=== PATIENT | male | born 1950 | race African-American/Black ===

== ENCOUNTER 2016-03-20 09:54 | Emergency (ER) | payer MEDICARE, MEDICAID ==
[2016-03-20] MEDS ORDERED: Lorazepam 2 MG/ML VIAL ONE (13:43)
--- NOTE | 2016-03-20 14:05 | ERRECORD ---
[facility] EMERGENCY RECORD HPI GENITOURINARY/STD (10:03 DHAM) CHIEF COMPLAINT: Patient presents for evaluation of "He pulled his nowak out this morning" per EMS. assisted evidently called the nurse and said that he had pulled his G tube and they would send one with him. He does not have a Gtube site but does have a suprapubic stoma. Pt with frontotemporal dementia and h/o urinary retension on his chart. HISTORIAN: Additional history obtained from EMS. LOCATION: Unable to localize symptoms. QUALITY: Unable to describe the quality of the pain. SEVERITY: Current severity of pain rated as 0/10. TIME COURSE: Patient unable to describe onset of symptoms. ASSOCIATED WITH: No associated symptoms, drop of blood at the meatus. RELIEVED BY: Patient's condition relieved by nothing. E/M CAVEAT: Emergency room caveat invoked due to patient with dementia. ROS (10:08 DHAM) NOTES: Systems not reviewed; unable., Emergency room caveat invoked due to patient with dementia. PAST MEDICAL HISTORY (10:29 SFRE) MEDICAL HISTORY: Notes: DEMENTIA, Past medical history includes gastrointestinal disease, ESOPHAGITIS, Past medical history includes genitourinary history, URINE RETENTION, Past medical history includes history of hypertension, which has been treated, Past medical history includes neurological disease, transient ischemic attack, Past medical history includes pulmonary disease, chronic obstructive pulmonary disease. PSYCHIATRIC HISTORY: Psychiatric history includes, anxiety. KNOWN ALLERGIES ALLERGIES: (Unconfirmed) FOOD ALLERGIES: (Unconfirmed) LATEX ALLERGY? (Unconfirmed) No Known Allergies CURRENT MEDICATIONS No recorded medications VITAL SIGNS VITAL SIGNS: BP: 134/59, Pulse: 77, Resp: 18, Temp: 97.9 (Tympanic), O2 sat: 99 on Room Air, Time: 03/20/2016 09:56. (09:56 SFRE) BP: 134/55, Pulse: 66, Resp: 18, Temp: 97.9 (Tympanic), Pain: 0, O2 sat: 100 on Room Air, Time: 03/20/2016 11:45. (11:45 SFRE) BP: 131/55, Pulse: 65, Resp: 18, Temp: 97.9, Pain: 0, O2 sat: 100 on RA, &a-1R&a+25V*p+0X*m5322L*c202B*c15G*c2P*p-0X&a-25V&a+1R Name: Arpit Gamble : 1950 M66 MedRec: [id number] AcctNum: [id number] Prepared: SunMar 20, 2016 15:36 by Interface Page 1 of 3 pMD [facility] EMERGENCY RECORD Time: 03/20/2016 13:52. [facility]AM (10:08 [facility]) CONSTITUTIONAL: Vital signs reviewed, Patient afebrile, Pulse normal, Blood pressure normal, Respiratory rate normal, Patient appears non toxic, Patient appears pain free, Patient, agitated, will only yell out "get off of me" and will not answer questions. appears blind but eyes are open an he appears alert. HEAD: Head exam included findings of head atraumatic, normocephalic. EYES: Eye exam included findings of eyelids normal to inspection, Extraocular muscles intact. ENT: Ear exam normal, Nose exam normal, Pharynx exam normal, Uvula exam normal, Tonsil exam normal. NECK: Neck exam included findings of normal range of motion, Trachea midline, turns head either direction on his own. RESPIRATORY CHEST: Respiratory exam included findings of no respiratory distress, Breath sounds clear, No wheezing, No rales, No rhonchi. CARDIOVASCULAR: Cardiovascular exam included findings of heart rate regular rate and rhythm, Heart sounds normal, normal S1, normal S2, no murmurs, no rub, no gallop. ABDOMEN MALE: Abdominal exam included findings of abdomen nontender, Bowel sounds normal, Liver normal, Spleen normal, no distension, no mass, no pulsatile masses, no peritoneal signs, no rigidity, no guarding, no rebound, suprapubic stoma noted with hint of blood at the ext surface. no bladder distension noted. GENITOURINARY MALE: Genitourinary exam included findings of penis normal, Testicle(s), large right hydrocele that transilluminates well and does not appear tender, Other testicle normal, no urethral discharge, no lesions. UPPER EXTREMITY: Upper extremity exam normal, except moderate contractures of bilat UE. LOWER EXTREMITY: Lower extremity exam normal, bilat contractures noted. NEURO: awake with eyes open and yells out and fights with minimal attempts at exam. SKIN: Skin exam included findings of skin warm, dry, and normal in color, no rash. PSYCHIATRIC: severe dementia. MEDICATION ADMINISTRATION SUMMARY Drug Name: LORazepam injection, Dose Ordered: 0.5 mg, Route: IV Push, Status: Given, Time: 13:46 03/20/2016, Detailed record available in Medication Service section. DOCTOR NOTES TEXT: Multiple attempts to reinsert suprapubic cath were &a-1R&a+25V*p+0X*p0610C*c202B*c15G*c2P*p-0X&a-25V&a+1R Name: Arpit Gamble : 1950 M66 MedRec: [id number] AcctNum: [id number] Prepared: SunMar 20, 2016 15:36 by Interface Page 2 of 3 pMD [facility] EMERGENCY RECORD unsuccessful. Will transfer to urology. (10:29 DHAM) Pt discussed with Dr. Avila and then Dr. Garcia in urology at [facility]. Dr. Garcia rec viscous xylocaine and a 16 guage siliconized nowak. We don't have those here. He is accepted in transfer. (11:24 DHAM) Pt had his IV inserted about 20 minutes ago and has been moaning since then and appears uncomfortable. His abdomen does not feel distended and the IV site looks clean and not infiltrated. I will give a low dose of Ativan at this time. (13:41 DHAM) nursing found the siliconized caths 1.5 hours after the pt left here. (15:27 DHAM) PROBLEM LIST No recorded problems DIAGNOSIS (11:32 DHAM) FINAL: PRIMARY: urinary retention, ADDITIONAL: displaced nowak. PRESCRIPTION No recorded prescriptions DISPOSITION PATIENT: Disposition Type: Transfer, Disposition: Transfer to [facility]. (11:32 DHAM) Patient left the department. (13:56 SFRE) Silverman: ERIC=MD José, Ousmane SFRE=SUSANNE Ricardo, Lani &a-1R&a+25V*p+0X*z2087D*c202B*c15G*c2P*p-0X&a-25V&a+1R Name: Arpit Gamble : 1950 M66 MedRec: [id number] AcctNum: [id number] Prepared: Quintin Mar 20, 2016 15:36 by Interface Page 3 of 3 pMD MTDD
--- NOTE | 2016-03-20 14:12 | PICIS ---
[facility] EMERGENCY RECORD COMMUNICATIONS (13:48 SCHI) COMMUNICATIONS: Notes: DR SYDNEE SANCHEZ AND DANIEL LERNER AT 1121 FOR TRANSFER TO ER,. TRIAGE (SunMar 20, 2016 09:57 SFRE) TRIAGE NOTES: PULLED OUT MCCONNELL CATHETER. (SunMar 20, 2016 09:57 SFRE) PATIENT: NAME: Arpit Gamble, AGE: 66, GENDER: male, : Sun1950, TIME OF GREET: SunMar 20, 2016 09:56, PREFERRED LANGUAGE: Belarusian, ECODE BILLING MAP: [facility], SSN: [id number], Zip Code: [address], KG WEIGHT: 58.97, , , PERSON ID: [id number], PCP: ANGELICA. (SunMar 20, 2016 09:57 SFRE) PHONE: . (11:14) COMPLAINT: PULLED CATHETER OUT. (SunMar 20, 2016 09:57 SFRE) ADMISSION: URGENCY: 3 Urgent, ADMISSION SOURCE: Home, TRANSPORT: AMBULANCE - [facility], BED: ED -01. (SunMar 20, 2016 09:57 SFRE) ASSESSMENT: Assessment: NAD, Symptoms began TODAY. (10:37 SFRE) SIRS SCORING: Heart Rate 55-109 (0), Temp range 96.8-101.1 (0), respiratory rate 12-24 (0), Mental Status altered: no (0). (10:37 SFRE) TRIAGE SCREENING: Patient denies suicidal ideation, Patient denies presence of domestic violence. (10:37 SFRE) PROVIDERS: TRIAGE NURSE: Lani Ricardo RN. (SunMar 20, 2016 09:57 SFRE) VITAL SIGNS: BP 134/59, Pulse 77, Resp 18, Temp 97.9, (Tympanic), O2 Sat 99, on Room Air, Time 03/20/2016 09:56. (09:56 SFRE) PREVIOUS VISIT ALLERGIES: No Known Allergies. (SunMar 20, 2016 09:57 SFRE) No Known Allergies. (10:29 SFRE) KNOWN ALLERGIES ALLERGIES: (Unconfirmed) FOOD ALLERGIES: (Unconfirmed) LATEX ALLERGY? (Unconfirmed) No Known Allergies CURRENT MEDICATIONS No recorded medications VITAL SIGNS VITAL SIGNS: BP: 134/59, Pulse: 77, Resp: 18, Temp: 97.9 (Tympanic), O2 sat: 99 on Room Air, Time: 03/20/2016 09:56. (09:56 SFRE) BP: 134/55, Pulse: 66, Resp: 18, Temp: 97.9 (Tympanic), Pain: 0, O2 sat: 100 on Room Air, Time: 03/20/2016 11:45. (11:45 SFRE) BP: 131/55, Pulse: 65, Resp: 18, Temp: 97.9, Pain: 0, O2 sat: 100 on RA, Time: 03/20/2016 13:52. (13:52 SFRE) &a-1R&a+25V*p+0X*p6210A*c202B*c15G*c2P*p-0X&a-25V&a+1R Name: Arpit Gamble : 1950 M66 MedRec: [id number] AcctNum: [id number] Prepared: SunMar 20, 2016 15:36 by Interface Page 1 of 7 pMD [facility] EMERGENCY RECORD NURSING ASSESSMENT: FALL RISK (11:25 SFRE) FALL RISK: Bed rest greater than 2 days (5), Sensory deficits (1), Impaired mobility (3), Elimination problems (3), Confusion (3), Total score 15, Fall risk. NURSING ASSESSMENT: GENITOURINARY CONSTITUTIONAL: Patient arrives, via stretcher, via [facility], Unsteady gait, Inability to ambulate, History obtained from, Patient appears, with contractures, malnourished, COMBATIVE, Patient, confused, combative, uncooperative, Patient alert, Patient is, confused, WNL, Skin warm, Skin dry, Skin normal in color, Mucous membranes pink, Mucous membranes, dry, Patient, poorly groomed, with poor personal hygiene, FROM [facility], Patient complains of PULLED SUPRIPUBIC. (10:38 SFRE) NONVERBAL PAIN: Non Verbal pain assessment findings include: Non-verbal expressions of pain at rest (1), Non-Verbal complaints present with movement (1), Facial grimaces present with movement (1), Bracing present with movement (1), Result: 4. (13:53 SFRE) GENITOURINARY MALE: Scrotum, swollen on the left, swollen on the right, no associated urinary complaints, Notes: SUPRAPUBIC STOMA LOOKS WELL, NO S/S OF INFECTION. (10:38 SFRE) ABDOMEN: Abdomen assessment findings include abdomen symmetrical, Abdomen soft, tender, Bowel sound normal, no associated nausea, no associated vomiting, no associated diarrhea, no associated constipation. (10:38 SFRE) SAFETY: Side rails up, Cart/Stretcher in lowest position, Family at bedside, Call light within reach, Hospital ID band on. (10:38 SFRE) NURSING PROCEDURE: IV (12:50 MDEB) PATIENT IDENITIFIER: Patient's identity verified by hospital ID bracelet, Patient's identity verified by family member. IV SITE 1: IV therapy indicated for hydration, IV therapy indicated for medication administration, IV established, to R UPPER ARM, using a 20 gauge catheter, in two attempts, IV site prepped with CHLOROPREP, Saline lock established, Flushed with normal saline (mls): 10. FOLLOW-UP SITE 1: After procedure, sterile transparent dressing applied. NOTES: Emotional support needed and given, Patient tolerated procedure well. SAFETY: Side rails up, Cart/Stretcher in lowest position, Family at bedside, Call light within reach, Hospital ID band on. &a-1R&a+25V*p+0X*a3907C*c202B*c15G*c2P*p-0X&a-25V&a+1R Name: Arpit Gamble : 1950 M66 MedRec: [id number] AcctNum: [id number] Prepared: SunMar 20, 2016 15:36 by Interface Page 2 of 7 pMD [facility] EMERGENCY RECORD NURSING PROCEDURE: NURSE NOTES NURSES NOTES: Notes: RESTING QUIETLY WITH NAD. (13:17 SFRE) Notes: PATIENT KEEPS COMPLAINING THAT DR RYAN MAKES SURE HE GETS GOOD PAIN MEDICINE. ALSO KEEPS THREATENING TO LEAVE AMA. (13:33 SFRE) Notes: PATIENT CONTINUALLY MOANING. NO PAIN MEDS ORDERED. (13:36 SFRE) NURSING PROCEDURE: TRANSFER (13:52 SFRE) TRANSFER: Reason for transfer need for specialized care, Diagnosis: URINARY RETENTION/MCCONNELL DISPLACEMENT, Accepting institution: [facility], Accepting physician: SYDNEE, Referring physician: MIRIAM, Transported by urgent ambulance, accompanied by emergency medical services personnel, Report called to receiving facility, SUSANNE JOSHUA, Bed assigned ON ARRIVAL, Copy of patient record prepared for receiving facility, Medication reconciliation form prepared and sent to receiving facility, Patient consent for transfer signed, Patient given appropriate sedation for safe transport, Family member contacted, BS. SAFETY: Side rails up, Cart/Stretcher in lowest position, Family at bedside, Call light within reach, Hospital ID band on. VITAL SIGNS: BP: 131, / 55, Pulse: 65, Resp: 18, Temp: 97.9, Pain: 0, O2 sat: 100, on: RA. NURSING PROCEDURE: URINE COLLECTION (10:26 SFRE) URINE COLLECTION MALE: Urine collection indicated for PULLED OUT SUPRAPUBIC MCCONNELL, Urine collected from suprapubic catheter, UNABLE TO INSERT SUPRAPUBIC MCCONNELL. ORDER DETAILS Order Name: REGISTERED PHARMACIST ED, Status: Done, Time: 13:42 03/20/2016, User: YAN, - Ordered for: MD Kumar Darren, - Entered by: MD Kumar Darren - SunMar 20, 2016 13:40, - Quantity: 1, Order Name: ERRT Pulse Oximeter ER, Status: Active, Time: 13:40 03/20/2016, User: ERIC, - Ordered for: MD Kumar Darren, - Entered by: MD Kumar Darren - SunMar 20, 2016 13:40, - Quantity: 1, Order Name: SALINE LOCK, Status: Done, Time: 12:58 03/20/2016, User: YAN, - Ordered for: MD Kumar Darren, - Entered by: MD Kumar Darren - SunMar 20, 2016 11:31, - Quantity: 1. MEDICATION ADMINISTRATION SUMMARY &a-1R&a+25V*p+0X*s3827E*c202B*c15G*c2P*p-0X&a-25V&a+1R Name: Arpit Gamble : 1950 M66 MedRec: [id number] AcctNum: [id number] Prepared: SunMar 20, 2016 15:36 by Interface Page 3 of 7 pMD [facility] EMERGENCY RECORD Drug Name: LORazepam injection, Dose Ordered: 0.5 mg, Route: IV Push, Status: Given, Time: 13:46 03/20/2016, Detailed record available in Medication Service section. MEDICATION SERVICE (13:46 [facility]) LORazepam injection: Order: LORazepam injection (lorazepam) - Dose: 0.5 mg : IV Push Schedule: Now Ordered by: Ousmane Kumar MD Entered by: Ousmane Kumar MD SunMar 20, 2016 13:40 , Acknowledged by: Maris Adler RN SunMar 20, 2016 13:43 Documented as given by: Lani Ricardo RN SunMar 20, 2016 13:46 Patient, Medication, Dose, Route and Time verified prior to administration. Amount given: 0.5MG, IV SITE #1 IVP, initial medication, Slowly, Awake and alert- acceptable, Catheter placement confirmed via flush prior to administration, IV site without signs or symptoms of infiltration during medication administration, No swelling during administration, No drainage during administration, IV flushed after administration, Correct patient, time, route, dose and medication confirmed prior to administration, Patient advised of actions and side-effects prior to administration, Allergies confirmed and medications reviewed prior to administration, Patient in position of comfort, Side rails up, Cart in lowest position, Family at bedside. HPI GENITOURINARY/STD (10:03 DHAM) CHIEF COMPLAINT: Patient presents for evaluation of "He pulled his mcconnell out this morning" per EMS. custodial evidently called the nurse and said that he had pulled his G tube and they would send one with him. He does not have a Gtube site but does have a suprapubic stoma. Pt with frontotemporal dementia and h/o urinary retension on his chart. HISTORIAN: Additional history obtained from EMS. LOCATION: Unable to localize symptoms. QUALITY: Unable to describe the quality of the pain. SEVERITY: Current severity of pain rated as 0/10. TIME COURSE: Patient unable to describe onset of symptoms. ASSOCIATED WITH: No associated symptoms, drop of blood at the meatus. RELIEVED BY: Patient's condition relieved by nothing. E/M CAVEAT: Emergency room caveat invoked due to patient with dementia. [facility] NOTES: Systems not reviewed; unable., Emergency room caveat invoked due to patient with dementia. [facility] [facility] MEDICAL HISTORY: Notes: DEMENTIA, Past medical history includes gastrointestinal disease, ESOPHAGITIS, Past medical history includes &a-1R&a+25V*p+0X*x5718U*c202B*c15G*c2P*p-0X&a-25V&a+1R Name: Arpit Gamble : 1950 M66 MedRec: [id number] AcctNum: [id number] Prepared: SunMar 20, 2016 15:36 by Interface Page 4 of 7 pMD [facility] EMERGENCY RECORD genitourinary history, URINE RETENTION, Past medical history includes history of hypertension, which has been treated, Past medical history includes neurological disease, transient ischemic attack, Past medical history includes pulmonary disease, chronic obstructive pulmonary disease. PSYCHIATRIC HISTORY: Psychiatric history includes, anxiety. PHYSICAL EXAM (10:08 [facility]) CONSTITUTIONAL: Vital signs reviewed, Patient afebrile, Pulse normal, Blood pressure normal, Respiratory rate normal, Patient appears non toxic, Patient appears pain free, Patient, agitated, will only yell out "get off of me" and will not answer questions. appears blind but eyes are open an he appears alert. HEAD: Head exam included findings of head atraumatic, normocephalic. EYES: Eye exam included findings of eyelids normal to inspection, Extraocular muscles intact. ENT: Ear exam normal, Nose exam normal, Pharynx exam normal, Uvula exam normal, Tonsil exam normal. NECK: Neck exam included findings of normal range of motion, Trachea midline, turns head either direction on his own. RESPIRATORY CHEST: Respiratory exam included findings of no respiratory distress, Breath sounds clear, No wheezing, No rales, No rhonchi. CARDIOVASCULAR: Cardiovascular exam included findings of heart rate regular rate and rhythm, Heart sounds normal, normal S1, normal S2, no murmurs, no rub, no gallop. ABDOMEN MALE: Abdominal exam included findings of abdomen nontender, Bowel sounds normal, Liver normal, Spleen normal, no distension, no mass, no pulsatile masses, no peritoneal signs, no rigidity, no guarding, no rebound, suprapubic stoma noted with hint of blood at the ext surface. no bladder distension noted. GENITOURINARY MALE: Genitourinary exam included findings of penis normal, Testicle(s), large right hydrocele that transilluminates well and does not appear tender, Other testicle normal, no urethral discharge, no lesions. UPPER EXTREMITY: Upper extremity exam normal, except moderate contractures of bilat UE. LOWER EXTREMITY: Lower extremity exam normal, bilat contractures noted. NEURO: awake with eyes open and yells out and fights with minimal attempts at exam. SKIN: Skin exam included findings of skin warm, dry, and normal in color, no rash. PSYCHIATRIC: severe dementia. EVENTS &a-1R&a+25V*p+0X*p9430B*c202B*c15G*c2P*p-0X&a-25V&a+1R Name: Arpit Gamble : 1950 M66 MedRec: [id number] AcctNum: [id number] Prepared: SunMar 20, 2016 15:36 by Interface Page 5 of 7 pMD [facility] EMERGENCY RECORD TRANSFER: Triage to Emergency Main ED -01. (SunMar 20, 2016 09:57 SFRE) Removed from Emergency Main ED -01. (13:56 SFRE) O2SAT INTERPRETATION (10:29 DHAM) O2SAT: Single pulse oximetry, Oxygen saturation 99%, on room air, Oxygen saturation interpretation: Normal, No intervention required. DOCTOR NOTES TEXT: Multiple attempts to reinsert suprapubic cath were unsuccessful. Will transfer to urology. (10:29 DHAM) Pt discussed with Dr. Avila and then Dr. Garcia in urology at [facility]. Dr. Garcia rec viscous xylocaine and a 16 guage siliconized mcconnell. We don't have those here. He is accepted in transfer. (11:24 DHAM) Pt had his IV inserted about 20 minutes ago and has been moaning since then and appears uncomfortable. His abdomen does not feel distended and the IV site looks clean and not infiltrated. I will give a low dose of Ativan at this time. (13:41 DHAM) nursing found the siliconized caths 1.5 hours after the pt left here. (15:27 DHAM) PROBLEM LIST No recorded problems DIAGNOSIS (11:32 DHAM) FINAL: PRIMARY: urinary retention, ADDITIONAL: displaced mcconnell. DISPOSITION PATIENT: Disposition Type: Transfer, Disposition: Transfer to [facility]. (11:32 DHAM) Patient left the department. (13:56 SFRE) PRESCRIPTION No recorded prescriptions IMAGING [place] PAPERS: Image captured from scanner. (10:16 JPAR) Page 2 added. Image captured from scanner. (10:16 JPAR) Page 3 added. Image captured from scanner. (10:17 JPAR) Page 4 added. Image captured from scanner. (10:17 JPAR) Page 5 added. Image captured from scanner. (10:17 JPAR) Page 6 added. Image captured from scanner. (10:17 JPAR) Page 7 added. Image captured from scanner. (10:17 JPAR) Page 8 added. Image captured from scanner. (10:17 JPAR) Page 9 added. Image captured from scanner. (10:17 JPAR) PRISON NOTES: Image captured from scanner. (10:50 SFRE) Page 2 added. Image captured from scanner. (10:50 SFRE) Page 3 added. Image captured from scanner. (10:50 SFRE) Page 4 added. Image captured from scanner. (10:50 SFRE) &a-1R&a+25V*p+0X*b8628G*c202B*c15G*c2P*p-0X&a-25V&a+1R Name: Arpit Gamble : 1950 M66 MedRec: [id number] AcctNum: [id number] Prepared: SunMar 20, 2016 15:36 by Interface Page 6 of 7 pMD [facility] EMERGENCY RECORD Page 5 added. Image captured from scanner. (10:51 SFRE) Page 6 added. Image captured from scanner. (10:51 SFRE) Page 7 added. Image captured from scanner. (10:51 SFRE) Page 8 added. Image captured from scanner. (10:51 SFRE) Page 9 added. Image captured from scanner. (10:52 SFRE) *MEMORANDUM OF TRANSFER: Image captured from scanner. (13:05 SCHI) CONSENTS: Image captured from scanner. (13:06 SCHI) EMS TRANSPORT ORDERS: Image captured from scanner. (13:06 SCHI) [place] WORKSHEET: Image captured from scanner. (13:52 SCHI) Page 2 added. Image captured from scanner. (13:53 [facility]) *SUPPLY CHARGE SHEET: Image captured from scanner. [facility]13:[address] [facility] ADMIN DIGITAL SIGNATURE: SUSANNE Puente, Rj. (13:55 [facility]) MD Miriam, Ousmane. (15:28 [facility]) Silverman: ERIC=MD Kumar Darren JPFELIPE=MICHAEL Ricks Julia MDEB=SUSANNE Adler, Maris BOWMAN=SUSANNE Puente Slinda SFRE=SUSANNE Ricardo, Lani &a-1R&a+25V*p+0X*k4146V*c202B*c15G*c2P*p-0X&a-25V&a+1R Name: Arpit Gamble : 1950 M66 MedRec: [id number] AcctNum: [id number] Prepared: SunMar 20, 2016 15:36 by Interface Page 7 of 7 pMD MTDD
== END 2016-03-20 13:50 | disposition short-term general hospital (02) ==
LOC: MADERS 09:54
DX: Z46.6 Encounter for fitting and adjustment of urinary device (principal); R33.9 Retention of urine, unspecified; I10 Essential (primary) hypertension; J44.9 Chronic obstructive pulmonary disease, unspecified; F41.9 Anxiety disorder, unspecified
CPT/HCPCS: 94760; 96374; J2060

== ENCOUNTER 2016-10-26 07:16 | Inpatient (IN) | payer MEDICARE, MEDICAID ==
[2016-10-26] MEDS ORDERED: Sodium Chloride 0.9% 1,000 ML BAG ONE (07:19)
[2016-10-26 09:07] LABS: #Basophils 0.2 thou/uL (0.0-0.2); #Eosinphils 0.8 thou/uL (0.0-0.7); #Lymphocytes 2.4 thou/uL (1.20-3.40); #Monocytes 0.9 thou/uL (0.11-0.59); #Neutrophils 9.4 thou/uL (1.40-6.50); %Basophils 1.4 % (0.0-1.0); %Eosinophils 5.9 % (0.0-10.0); %Lymphocytes 17.5 % (21.0-51.0); %Monocytes 6.6 % (0.0-10.0); %Neutrophils 68.7 % (42.0-75.0); ALT (SGPT) 29 U/L (8-55); AST (SGOT) 25 U/L (5-34); Albumin 3.2 g/dL (3.4-4.8); Alkaline Phosphatase 116 U/L (40-150); Anion Gap 15 mmol/L (10-20); Anisocytosis MODERATE=16-30 cells (100X) (0-5/hpf); BUN (Urea Nitrogen) 29 mg/dL (8.4-25.7); Bilirubin, Total Less than 0.3 mg/dL (0.2-1.2); Calc. Creatinine Clearance 0 mL/min (70-130); Calcium 10.1 mg/dL (7.8-10.44); Carbon Dioxide 28 mmol/L (23-31); Chloride 107 mmol/L (98-107); Estimated GFR-MDRD 70; Globulin 7.7 g/dL (2.4-3.5); Glucose 116 mg/dL (80-115); Hypochromia MODERATE=16-30 cells (100X) (0-5/hpf); MDiff Complete? YES; Magnesium 2.4 mg/dL (1.6-2.6); Mean Corpuscular HGB CONC 29.6 g/dL (32.0-36.0); Mean Corpuscular Volume 74.3 fl (80.0-94.0); Mean Platelet Volume 6.7 fL (7.4-10.4); Microcytosis MODERATE=15-30 cells (100X) (0-5/hpf); PLT Morphology Comment Appears Increased; Platelet Count 521 thou/uL (130-400); Potassium 4.7 mmol/L (3.5-5.1); Protein, Total 10.9 g/dL (5.8-8.1); RBC Distribution Width 17.1 % (11.5-14.5); Red Blood Cell (RBC) Count 3.63 mill/uL (4.70-6.10); Sodium 145 mmol/L (136-145); White Blood Cell (WBC) Count 13.7 thou/uL (4.8-10.8)
[2016-10-26 09:12] LABS: CKMB 0.5 ng/mL (0-6.6); Troponin I Less than 0.010 ng/mL (< 0.028)
--- NOTE | 2016-10-26 09:18 | CT ---
CT HEAD WITHOUT IV CONTRAST: 10/26/2016 HISTORY: Altered mental status. COMPARISON: 09/03/2011 FINDINGS: Again noted are large areas of encephalomalacia involving each cerebral hemisphere, involving the te mporal, parietal, and occipital lobes on the right and involving the left temporal and occipital lob e on the left. There is associated mild ex vacuo dilatation of the occipital and temporal horns of the left lateral ventricles. There are low density areas in the periventricular white matter, likel y reflective of chronic small vessel ischemic changes. Cerebral volume loss is again present. There is no evidence of an acute cortical infarction, hemorrhage, mass effect, or midline shift. Th ere has been no interval change when compared to the prior exam. IMPRESSION: 1. No acute intracranial abnormalities demonstrated. 2. Stable extensive encephalomalacia involving the cerebral hemispheres bilaterally with moderate t o severe chronic small vessel ischemic changes also stable. 3. Interval development of atrophy of the left globe with associated calcifications. POS: FELICITY
--- NOTE | 2016-10-26 09:21 | RAD ---
FRONTAL RADIOGRAPH CHEST: 10/26/2016 HISTORY: Cough. COMPARISON: 11/04/2011 FINDINGS: There is dense complete opacification of the right upper lobe, extending into the right perihilar re gion. Supine imaging is provided, limiting assessment for pneumothorax and pleural fluid. The left lung appears relatively clear. IMPRESSION: New dense opacity in the right perihilar region and right upper lobe region, with complete consolida tion of the right upper lobe. This may be on the basis of an underlying right hilar mass with assoc iated right upper lobe collapse. This could potentially be on the basis of an inflammatory/infectio us process with associated aspiration. As the findings demonstrate significant suspicion for underl navin malignancy, CT examination of the chest is recommended, with intravenous contrast. CODE T POS: GLORIA
[2016-10-26 09:23] LABS: Bacteria/HPF 3+ HPF (None Seen); Bilirubin Negative (Negative); Blood, Urine Negative (Negative); Clarity Slightly Cloudy (Clear); Glucose, Urine (Dipstick) Negative (Negative); Leukocyte Moderate (Negative); Nitrite Positive (Negative); Protein, Urine (Dipstick) Trace mg/dL (Neg-Trace); Specific Gravity, Urine 1.015 (1.005-1.030); Squamous Epithelial None Seen HPF (0-3); Urobilinogen 0.2 mg/dL (0.2-1.0); WBC/HPF 21-50 HPF (0-3); pH, Urine 5.5 (5.0-9.0)
[2016-10-26] MEDS ORDERED: Lorazepam 2 MG/ML VIAL ONE (09:23)
[2016-10-26] MEDS ORDERED: Iopamidol 370 76% 100 ML VIAL ONE (10:35)
[2016-10-26] MEDS ORDERED: Fentanyl 100 MCG/2 ML VIAL ONE (10:52)
[2016-10-26] MEDS ORDERED: Levofloxacin 500 mg/D5W 100 ml Premix Bag ONE (11:21)
--- NOTE | 2016-10-26 11:55 | CT ---
CT THORAX WITH IV CONTRAST: 10/26/2016 HISTORY: Right upper lobe mass. Weight loss of 25 pounds in the last month. Cough. COMPARISON: CTA chest obtained from [facility] on 09/03/2011. FINDINGS: There is a large heterogeneous but predominantly hypodense mass in the right upper lobe, in a right paramediastinal location, which extends into the subcarinal location and surrounds a portion of the right mainstem bronchus. There is adjacent volume loss. This area of mass-like density measures 11 .8 cm craniocaudal x 10.6 cm transverse x 10.8 cm AP. There is a small right pleural effusion. Linear densities are seen in the left lower lobe, which may be related to either mild atelectasis or scarring. No pulmonary nodule is seen. Vascular calcifications are seen in the thoracic aorta and in the coronary arteries. No lymphadenop athy is appreciated. There is mild mass effect on the distal aspect of the trachea due to the right upper lobe and right paramediastinal mass. Subcentimeter, [id number]-ec-characterize, hypodense lesion is again seen in the superior pole, left kidney, statistically likely representing a cyst. The remainder of the upper abdomen has a normal C T appearance. There is bilateral glenohumeral osteoarthropathy. Degenerative changes are noted in the spine. No lytic or sclerotic osseous lesions are identified. IMPRESSION: Large right upper lobe/right paramediastinal mass with the mass measuring 11.8 cm in greatest cranio caudal dimensions. The mass extends into the subcarinal region and also results in mild mass effect on the distal aspect of the trachea. Findings are worrisome for a neoplastic process. POS: GLORIA
[2016-10-26] MEDS ORDERED: Acetaminophen 650 MG Suppository PR PRN (15:01)
[2016-10-26] MEDS ORDERED: Ondansetron HCl/PF 4 MG/2 ML Vial SLOW IVP PRN (15:01)
[2016-10-26] MEDS ORDERED: Dextrose 5 %-0.45 % NaCl 1,000 ML IV SCH (15:15)
[2016-10-26 15:29] VITALS: BMI 18.1
[2016-10-26] MEDS ORDERED: Acetaminophen 325 MG TAB PO PRN (15:35)
[2016-10-26] MEDS: Sodium Chloride 0.9% 1,000 ML IV SCH (17:15)
[2016-10-26] MEDS: ALPRAZolam 0.25 MG TAB PO SCH (20:33)
[2016-10-26] MEDS: Divalproex Sodium 125 mg Sprinkle Capsule PO SCH (20:33)
[2016-10-26] MEDS: Metoprolol Tartrate 50 MG TAB PO SCH (20:34)
--- NOTE | 2016-10-27 01:52 | HP ---
DATE OF ADMISSION: To [facility] on 10/26/2016 CHIEF COMPLAINT: Less interactive than usual and weight loss. HISTORY PRESENT ILLNESS: The patient is a 66-year-old Federico male who resides at [facility]. Patient has a history of hypertension, advanced vascular dementia and history of multiple stro kes that have left him aphasic and nonambulatory requiring total care. Patient has a suprapubic cat heter. He is also blind in the left eye. [facility] an d required total care. On the morning of the day of admission, the nurses noticed that patient was much less interactive th an usual. Nurses said that over the last 2 months, the patient has had a gradual decline in his christopher ght and has not been eating as well. His recent lab studies have only shown a chronic anemia with a hemoglobin of 8.5, was opted to send patient to the emergency room to be further evaluated since he was less alert and interactive as usual and also due to the extensive weight loss. In the emergency room, patient underwent evaluation that included the initial chest x-ray that showe d new dense opacity of the right perihilar region and upper right lobe. The left chest was clear. The patient underwent a CT scan of the chest that showed a large right upper lobe and right paramedi astinal mass that measures 11 x 8 cm in its greatest craniocaudal dimension. The mass extended into the subcarinal region and also resulted in a mild mass effect on the distal aspect of the trachea, very worrisome for a neoplasm. The patient also underwent a CT scan of the brain that showed no acu te intracranial abnormalities. The patient though had stable extensive encephalomalacia involving t hese cerebral hemispheres bilateral with moderate severe chronic small vessel ischemic changes. He also had interval atrophy of the left globe with calcification. His lab studies showed an hemoglobi n and hematocrit of 8 and 27, white cell count 13,700 with 69% segs, 18% lymphocytes and a platelet count of 521,000. His sodium was 145, potassium 4.5, BUN 29, creatinine 1.2, glucose 116, serum pro tein was 10.9, albumin 3.2 and TSH 0.7. His urine collected through his suprapubic cath shows speci fic gravity of 1.015, positive nitrite, 21-50 wbc's, no epithelial cells seen, and 3+ bacteria. The emergency room physician, Dr. Paul Celestin, visit with the patient's Parul Hilliard. She had asked that the patient be admitted here. She did not want him to go to [facility]. Dr. Celestin reviewed the x-rays with her and showed her pictures of the large mass. The patient's did not want him to send to [place] where he could be further evaluated for this mass due to his severe comorbidities and also said that she would sign a do not resuscitate order in light of what is known about him. The patient was admitted to the hospital as patient was seen in his hospital room soon after his adm ission. His , Parul Hilliard, was here and I had an opportunity to visit with her. The pat margaret could not give any history. His just indicated that Mr. Gamble has had a very gradual de mcrae in his weight, has not been eating as well. PAST MEDICAL HISTORY: The patient was last hospitalized in 08/2011 for urinary tract infection. Ismael miladyludwig was hospitalized earlier that same year for sepsis, sacral and scrotal decubitus and Clostridi um difficile colitis. The ulcerations all healed. During that hospitalization, he had a Pablo cath eter initially placed and that created a false passageway and this was complicated by cellulitis and abscess formation and urinoma requiring incision and drainage. The incision site healed by seconda ry intention and patient had a suprapubic catheter placed. Patient has had multiple cerebrovascular accidents that has left him aphasic, nonambulatory, bed confined and with a very severe progressive vascular dementia. The patient also had evidence of small vessel disease. The patient has periphe ral vascular disease for which he has had PTCA and stent placement in the right external iliac in 31 08. The patient has diabetes and with gradual weight loss, has not required any treatment. Patient has severe behavioral issues that are controlled with Sinequan and Depakote. 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 PRESENT MEDICINES: Alprazolam 0.25 mg b.i.d., amlodipine 10 mg daily, Depakote sprinkle 125 mg b.i. d., lactulose 10 grams per 15 mL daily, metoprolol tartrate 50 mg b.i.d., Sinequan 100 mg t.i.d., as pirin 81 mg daily, Milk of Magnesia 30 mL daily p.r.n., levothyroxine 25 mcg daily, Tylenol 325 mg 2 tablets every 4 hours as needed and mirtazapine 15 mg at bedtime. ALLERGIES: No known allergies. DIET: Pureed diet with thin liquids supplemented with TwoCal HN t.i.d. and shakes 3 times a d ay. Pureed diet with fortified cereals, TwoCal HN 60 mL t.i.d. REVIEW OF SYSTEMS: Patient not able to answer review of systems. ADLs: The patient is bed confined requiring total care. He is incontinent of stools. He has a sup rapubic catheter that size 14 Hungarian with a 30 mL balloon. Most of the time, patient lies on his le ft side and stays completely covered with a sheet or blanket. He is aphasic. HABITS: Alcohol none. Tobacco none. SOCIAL HISTORY: Patient is , is Parul Hilliard. CODE STATUS: The patient had been a FULL CODE, but on the day of admission was switched to a DNR. PHYSICAL EXAMINATION: GENERAL: Shows a 66-year-old Federico male who is lying in bed. He is lying on his left side with his arms and legs flexed and pulled up close to him. His eyes are open and he resists any effort to mo ve his arms, but does not attempt to talk. VITAL SIGNS: Shows a blood pressure of 137/56, pulse 92 and respirations 20, O2 sat 98% on room air . His last weight at the prison was 122 pounds. HEAD: Normocephalic and atraumatic. EARS: TMs are clear on the right. Left could not be visualized. Patient lying on that side and wo uld not permit his head to be turned. EYES: The right pupil is round and reactive. The left eye is opacified and shrunken. NOSE: Normal. MOUTH AND THROAT: Normal. NECK: Carotids not enlarged. Thyroid not enlarged. There is no adenopathy. LUNGS: Diminished breath sounds in the right upper chest. The left chest is clear. HEART: Regular rate. ABDOMEN: Soft. There is a suprapubic catheter present. The site is clean and the catheter is a 14 Hungarian with 30 mL balloon. The catheter looks very clean. EXTREMITIES: The patient's upper and lower extremities are contracted. There is no edema, no ulcer ations. NEUROLOGIC: Patient is aphasic. His eyes are open. He is blind in the left eye. He resist any mo vement of his arms. He is contracted in the upper and lower extremities. IMPRESSION: 1. Urinary tract infection. A. Presenting with some alteration in mental status. 2. Large right upper pulmonary mass. A. An 11 centimeter mass in the right mediastinal region and right upper lobe with extending to the subcarinal region with mild mass effect on the distal trachea. B. Probable cancer. C. Not a candidate for any type of surgical or chemo or radiation therapy. D. Will be managed palliatively. 3. Advanced vascular dementia. A. Complicated by severe behavioral issues with combativeness, controlled with Depakote and Sin equan and alprazolam. 4. History of multiple cerebrovascular accidents. A. Leaving patient aphasic. B. Requires total care. 5. Hypertension. 6. Anemia of chronic illness. 7. Chronic obstructive pulmonary disease. 8. 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 9. Suprapubic catheter. A. Placed in 07/02/2011 secondary to a traumatic Pablo catheter passage that created a false pa ssage, abscess and cellulitis and urinoma requiring incision and drainage. 10. Hypothyroidism. 11. Gastroesophageal reflux disease. 12. Weight loss. A. Probably as the result of the large pulmonary mass. 13. Peripheral vascular disease. A. History of percutaneous transluminal coronary angioplasty and stent placement in the right e xternal iliac in 2006. 14. DNR. PLAN: The patient has been admitted to the hospital where he will be cautiously hydrated and will b e placed on IV antibiotics for the urinary tract infection. The patient is not a candidate for any type of invasive diagnostic testing or any type of surgical treatment of the pulmonary mass nor woul d he be able to tolerate any radiation therapy or chemotherapy with his severe comorbidities and sev ere functional impairment. I have visited with patient's , Parul Hilliard and she had had a n opportunity to look at the CT scan with the ER doctor and see the large mass in his chest. She grijalva s changed his directive from a FULL CODE to a DNR. The patient is just asking for a palliative care after treatment of the urinary tract infection. We will [facility] the [facility] care. We will leave this present catheter in place, it looks clean, it is a very small catheter and if this is removed then that may be very difficult to reinsert a catheter.
[2016-10-27] MEDS: Levothyroxine Sodium 25 MCG TAB PO SCH (05:19)
[2016-10-27] MEDS: Sodium Chloride 0.9% 1,000 ML IV SCH ×2 (05:19→11:20)
[2016-10-27 05:37] LABS: Anion Gap 10 mmol/L (10-20); BUN (Urea Nitrogen) 21 mg/dL (8.4-25.7); Calc. Creatinine Clearance 49 mL/min (70-130); Calcium 9.3 mg/dL (7.8-10.44); Carbon Dioxide 27 mmol/L (23-31); Chloride 110 mmol/L (98-107); Estimated GFR-MDRD 82; Glucose 92 mg/dL (80-115); Potassium 4.3 mmol/L (3.5-5.1); Sodium 143 mmol/L (136-145)
[2016-10-27 05:43] LABS: Hemoglobin A1c 3.7 % (4.0-6.0)
[2016-10-27 05:48] LABS: #Basophils 0.1 thou/uL (0.0-0.2); #Eosinphils 0.7 thou/uL (0.0-0.7); #Neutrophils 7.3 thou/uL (1.40-6.50); %Basophils 1.3 % (0.0-1.0); %Eosinophils 5.9 % (0.0-10.0); %Lymphocytes 18.5 % (21.0-51.0); %Monocytes 8.6 % (0.0-10.0); %Neutrophils 65.7 % (42.0-75.0); Mean Corpuscular HGB CONC 29.5 g/dL (32.0-36.0); Mean Corpuscular Hemoglobin 21.6 pg (27.0-31.0); Mean Corpuscular Volume 73.2 fl (80.0-94.0); Mean Platelet Volume 6.2 fL (7.4-10.4); Platelet Count 479 thou/uL (130-400); RBC Distribution Width 16.6 % (11.5-14.5); Red Blood Cell (RBC) Count 3.23 mill/uL (4.70-6.10)
[2016-10-27 05:50] LABS: RBC Morphology ABNORMAL
[2016-10-27 05:51] LABS: Anisocytosis SLIGHT = 6-15 cells (100X) (0-5/hpf); Hypochromia MODERATE=16-30 cells (100X) (0-5/hpf); MDiff Complete? YES; Poikilocytosis SLIGHT = 6-15 cells (100X) (0-5/hpf)
[2016-10-27 05:52] LABS: PLT Morphology Comment Appears Adequate
[2016-10-27] MEDS: ALPRAZolam 0.25 MG TAB PO SCH ×2 (08:06→21:46)
[2016-10-27] MEDS: Metoprolol Tartrate 50 MG TAB PO SCH ×2 (08:07→21:43)
[2016-10-27] MEDS: Divalproex Sodium 125 mg Sprinkle Capsule PO SCH ×2 (08:07→21:43)
--- NOTE | 2016-10-27 13:55 | PRG ---
DATE OF SERVICE: 10/27/2016 SUBJECTIVE: Nurses report no problems with patient. OBJECTIVE: GENERAL: The patient is lying in bed. His eyes are open and he is moving his arms little bit. He seems comfortable and in no distress. VITAL SIGNS: Shows a temperature of 98.4, pulse 111, respirations 22, O2 sat 96% on room air, blood pressure 119/56. LUNGS: Clear on the left. There is absence breath sounds over the right upper anterior chest. HEART: Regular rate. LABORATORY DATA: Shows an H and H of 7 and 23.7, white cell count 11,000 with 66% segs, 19% lymphoc ytes, and platelet count of 479,000. His sodium 143, potassium 4.3, BUN is down to 21 and creatinin e down to 1.08. GFR is improved from 70 to 82. His hemoglobin A1c's is 3.7. TSH 0.7. ASSESSMENT: 1. Urinary tract infection. A. Presenting with some alteration in mental status. B. The patient is alert, but not communicative. He seems comfortable and free of any fever as of 10/27/2016. 2. Large right upper pulmonary mass. A. An 11 centimeter mass in the right mediastinal region and right upper lobe with extending to the subcarinal region with mild mass effect on the distal trachea. B. Probable cancer. C. Not a candidate for any type of surgical or chemo or radiation therapy. D. Patient appears comfortable. 3. Advanced vascular dementia. A. Complicated by severe behavioral issues with combativeness, controlled with Depakote and Sin equan and alprazolam. 4. History of multiple cerebrovascular accidents. A. Leaving patient aphasic. B. Requires total care. 5. Hypertension. 6. Anemia of chronic illness. A. Drop in hemoglobin to 7.2 from 8 with the hydration as of 10/27/2016. B. Do not plan on transfusion. Patient being comfortable and under palliative management. 7. Chronic obstructive pulmonary disease. 8. 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 9. Suprapubic catheter. A. Placed in 07/02/2011 secondary to a traumatic Pablo catheter passage that created a false pa ssage, abscess and cellulitis and urinoma requiring incision and drainage. B. Suprapubic catheter is functioning good as of 10/27/2016. 10. Hypothyroidism. 11. Gastroesophageal reflux disease. 12. Weight loss. A. Probably as the result of the large pulmonary mass. 13. Peripheral vascular disease. A. History of percutaneous transluminal coronary angioplasty and stent placement in the right e xternal iliac in 2006. 14. DNR. PLANS: The patient seems very comfortable. We will continue present care. Continue the IV antibio tics for the urinary tract infection. We will probably discharge the patient after completion of e antibiotics for the UTI and then discharge him back to the assisted under hospice in few days. We will not transfuse patient since he is nonsymptomatic at this time and under palliative managem ent.
[2016-10-28] MEDS: Sodium Chloride 0.9% 1,000 ML IV SCH (05:04)
[2016-10-28] MEDS: Levothyroxine Sodium 25 MCG TAB PO SCH (05:37)
[2016-10-28] MEDS: ALPRAZolam 0.25 MG TAB PO SCH ×3 (08:15→21:24)
[2016-10-28] MEDS: Divalproex Sodium 125 mg Sprinkle Capsule PO SCH ×3 (08:15→21:24)
[2016-10-28] MEDS: Metoprolol Tartrate 50 MG TAB PO SCH ×3 (08:16→21:24)
[2016-10-28] MEDS: Dextrose 5 % And 0.9 % NaCl 1,000 ML IV SCH (10:26)
--- NOTE | 2016-10-28 15:53 | PRG ---
DATE OF SERVICE: 10/28/2016 SUBJECTIVE: Nurse said the patient's condition is unchanged. He has been awake. He does not eat e sarkis with continual offering by the nurses. At times when I work with him, he will become combative and left alone. He is quiet and seems comfortable. OBJECTIVE: GENERAL: The patient is lying in bed on his left side with his arms contracted against his chest. His eyes are open. VITAL SIGNS: Shows a temperature of 97.8, pulse 113, respirations 18, O2 saturation 97%, blood pres sure 127/58. LUNGS: Have absence of breath sounds over the right upper anterior chest. The right posterior lowe r chest breath sounds are clear. Left chest seems clear. EXTREMITIES: No edema. ASSESSMENT: 1. Urinary tract infection. A. Presenting with some alteration in mental status. B. The patient is alert, but not communicative. Patient appears comfortable and remains free of any fever. The patient is back to his mental status baseline as 10/28/2016. 2. Large right upper pulmonary mass. A. An 11 centimeter mass in the right mediastinal region and right upper lobe with extending to the subcarinal region with mild mass effect on the distal trachea. B. Probable cancer. C. Not a candidate for any type of surgical or chemo or radiation therapy. D. Patient appears comfortable. 3. Advanced vascular dementia. A. Complicated by severe behavioral issues with combativeness, controlled with Depakote and Sin equan and alprazolam. 4. History of multiple cerebrovascular accidents. A. Leaving patient aphasic. B. Requires total care. 5. Hypertension. 6. Anemia of chronic illness. A. Drop in hemoglobin to 7.2 from 8 with the hydration as of 10/27/2016. B. Do not plan on transfusion. Patient being comfortable and under palliative management. 7. Chronic obstructive pulmonary disease. 8. 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 9. Suprapubic catheter. A. Placed in 07/02/2011 secondary to a traumatic Pablo catheter passage that created a false pa ssage, abscess and cellulitis and urinoma requiring incision and drainage. B. Suprapubic catheter continues to function well as of 10/28/2016. 10. Hypothyroidism. 11. Gastroesophageal reflux disease. 12. Weight loss. A. Probably as the result of the large pulmonary mass. 13. Peripheral vascular disease. A. History of percutaneous transluminal coronary angioplasty and stent placement in the right e xternal iliac in 2006. 14. DNR. PLAN: We will continue the IV Levaquin. We will change his fluids to D5 normal saline 250 mL per h our. Anticipate probable discharge back to the longterm on 10/30/2016 under hospice car e.
[2016-10-29] MEDS: Levothyroxine Sodium 25 MCG TAB PO SCH (05:27)
[2016-10-29] MEDS: Dextrose 5 % And 0.9 % NaCl 1,000 ML IV SCH (05:27)
[2016-10-29] MEDS: Metoprolol Tartrate 50 MG TAB PO SCH ×2 (08:04→22:10)
[2016-10-29] MEDS: Divalproex Sodium 125 mg Sprinkle Capsule PO SCH ×2 (08:04→22:10)
[2016-10-29] MEDS: ALPRAZolam 0.25 MG TAB PO SCH ×2 (08:07→22:09)
[2016-10-29] MEDS ORDERED: Dextrose 5 % And 0.9 % NaCl 1000 ml Bag ONE (14:23)
[2016-10-29] MEDS ORDERED: Sodium Chloride 0.9% 1,000 ML BAG ONE (14:23)
--- NOTE | 2016-10-29 14:24 | PRG ---
DATE OF SERVICE: 10/29/2016 SUBJECTIVE: Nurses report no change in the patient. OBJECTIVE: GENERAL: The patient lying in bed on his back tipped to the left with his face covered, and his leg s contracted up and he is quiet, not communicative, and appears comfortable. VITAL SIGNS: Temperature 98.9, pulse 104, respirations 18, O2 sat 94% on room air, blood pressure 1 37/69. LUNGS: The patient has absent breath sounds over the right upper anterior chest, left chest is steve r. HEART: Regular rate. ASSESSMENT: 1. Urinary tract infection. A. Presenting with some alteration in mental status. B. The patient is alert, but not communicative. Patient appears comfortable and remains free of any fever. The patient is back to his mental status baseline as 10/29/2016. 2. Large right upper pulmonary mass. A. An 11 centimeter mass in the right mediastinal region and right upper lobe with extending to the subcarinal region with mild mass effect on the distal trachea. B. Probable cancer. C. Not a candidate for any type of surgical or chemo or radiation therapy. D. Patient remains comfortable as of 10/29/2016. 3. Advanced vascular dementia. A. Complicated by severe behavioral issues with combativeness, controlled with Depakote and Sin equan and alprazolam. 4. History of multiple cerebrovascular accidents. A. Leaving patient aphasic. B. Complicated by severe dementia. C. Requires total care. 5. Hypertension. 6. Anemia of chronic illness. A. Drop in hemoglobin to 7.2 from 8 with the hydration as of 10/27/2016. B. Do not plan on transfusion. Patient being comfortable and under palliative management. 7. Chronic obstructive pulmonary disease. 8. 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 9. Suprapubic catheter. A. Placed in 07/02/2011 secondary to a traumatic Pablo catheter passage that created a false pa ssage, abscess and cellulitis and urinoma requiring incision and drainage. B. Suprapubic catheter continues to function well as of 10/29/2016. 10. Hypothyroidism. 11. Gastroesophageal reflux disease. 12. Weight loss. A. Probably as the result of the large pulmonary mass. 13. Peripheral vascular disease. A. History of percutaneous transluminal coronary angioplasty and stent placement in the right e xternal iliac in . DNR. PLAN: We will discontinue the IV fluids. We will give patient one more day of Levaquin. Anticipat e discharge to the shelter tomorrow under hospice care.
[2016-10-30] MEDS: Levothyroxine Sodium 25 MCG TAB PO SCH (05:18)
[2016-10-30] MEDS: Metoprolol Tartrate 50 MG TAB PO SCH ×2 (08:06)
[2016-10-30] MEDS: Divalproex Sodium 125 mg Sprinkle Capsule PO SCH ×2 (08:06)
[2016-10-30] MEDS: ALPRAZolam 0.25 MG TAB PO SCH ×2 (08:06)
--- NOTE | 2016-10-30 08:34 | DIS ---
FINAL DIAGNOSES: 1. Urinary tract infection. A. Presenting with some alteration in mental status. B. The patient is alert, but not communicative. Patient appears comfortable and remains free of any fever. The patient is back to his mental status baseline as 10/29/2016. 2. Large right upper pulmonary mass. A. An 11 centimeter mass in the right mediastinal region and right upper lobe with extending to the subcarinal region with mild mass effect on the distal trachea. B. Probable cancer. C. Not a candidate for any type of surgical or chemo or radiation therapy. D. The patient remains comfortable as of 10/30/2016. 3. Advanced vascular dementia. A. Complicated by severe behavioral issues with combativeness, controlled with Depakote and Sin equan and alprazolam. 4. History of multiple cerebrovascular accidents. A. Leaving patient aphasic. B. Complicated by severe dementia. C. Requires total care. 5. Hypertension. 6. Anemia of chronic illness. A. Drop in hemoglobin to 7.2 from 8 with the hydration as of 10/27/2016. B. Do not plan on transfusion. Patient being comfortable and under palliative management. 7. Chronic obstructive pulmonary disease. 8. 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 9. Suprapubic catheter. A. Placed in 07/02/2011 secondary to a traumatic Pablo catheter passage that created a false pa ssage, abscess and cellulitis and urinoma requiring incision and drainage. B. Suprapubic catheter continues to function well as of 10/29/2016. 10. Hypothyroidism. 11. Gastroesophageal reflux disease. 12. Weight loss and anorexia. A. Secondary to the large pulmonary mass. B. Progressive. 13. Peripheral vascular disease. A. History of percutaneous transluminal coronary angioplasty and stent placement in the right e xternal iliac in 2006. 14. DNR. SUMMARY: The patient is a 66-year-old Fed[place] male who has resided in the intermediate for many years and is bed confined and requires total care. The patient has a history of hypertension, advanced v ascular dementia and a history of multiple strokes that have left him aphasic, nonambulatory requiri ng total care and with the severe vascular dementia. He is also blind in the left eye. Ears; he has had severe behavioral difficulties that have been managed with alprazolam, Seroquel and recently he was placed on mirtazapine to try to stimulate his appetite since he has had a gradual decline. The patient was referred to the emergency room on the day of admission because the nurses said he did n ot seem himself the morning of the day of admission, he was much less responsive. He was not eating . His weight continued to drop. In the emergency room, patient was evaluated and his hemoglobin wa s 8 and 27, white cell count 13,700. He has a chronic anemia and the last check at the intermediate was around 8.5. He has had no signs of any bleeding. His urine collected from the suprapubic cath eter had 21-50 WBCs. His chest x-ray and subsequent CT scan of the chest showed a very large right upper lobe and right paramediastinal mass that measured 7 x 8 cm in its greatest craniocaudal dimens ion. The mass extended into the subcarinal region and resulted in mild mass effect on the distal as pect of the trachea, the large mass very suspicious of lung cancer. The patient was admitted to the hospital with a diagnosis of alteration in mental status, urinary tract infection, chronic anemia, large right upper lobe mass, probable lung cancer and the advanced vascular dementia with complicate d by chronic behavioral issues. HOSPITAL COURSE: The patient was admitted to the hospital where he was cautiously hydrated with IV fluids. He was placed on IV antibiotics with Levaquin and on his usual medication. He was placed o n pureed diet which he is on at the intermediate. The ER doctor has visited with patient's , Kadeem Hilliard and showed her the scan showing the large mass. Originally the patient was a full code, but she has changed this to a DNR after seeing the x-rays and after I had seen Mr. Gamble I a lso visited with Ms. Hilliard and reviewed with her his problems and the newfound large chest mass that probably is a cancer of the lung. The patient is not a candidate for any type of invasive bio psy to confirm this diagnosis. The patient would not be a candidate for any type of treatment wheth er it be surgery, radiation or chemotherapy. The patient's comorbidity would prevent his ability to participate and would make him too high of a risk. His functional status is bed confinement with n eeds for total care. I explained this to Ms. Hilliard and she was in agreement toward management in a palliative fashion. The goals were to treat the probable urinary tract infection with Levaquin and then discharge the patient back to the intermediate under hospice care. The patient had no pro blems during his hospital stay. His H\T\H did drop to 7 probably a result of some mild dehydration and then the rehydration with IV fluids initially. He has a history of chronic anemia. He has a hi story of diabetes, but is on no medication for this and blood sugars have been normal. His hemoglob in A1c on admission was 3.7. His TSH was 0.7. The patient had no more fever during the hospitaliza tion. His mental status returned to a baseline. Most of the time he would lay on his left side and would keep his head covered. He remained noncommunicative and he would not eat even with multiple tries by the nurses. His condition remained stable. I visited with his on the morning of 10/13 and let her know that the plans were to discharge him today and consult with hospice, which s he is agreeable to. The patient is a DNR. DIET: Pureed diet with nectar thickened liquids. The patient will require feeding. ACTIVITIES: Bed confined. Turn every 2 hours. MEDICATIONS: O2 at 2 liters by nasal cannula p.r.n., acetaminophen 325 mg 2 every 4 hours as needed , alprazolam 0.25 mg b.i.d., Depakote sprinkles 125 mg b.i.d., Levaquin 500 mg daily x3 days, levoth yroxine 25 mcg daily, metoprolol 50 mg b.i.d., ondansetron oral disintegrating tablets 4 mg every 6 hours as needed for nausea, Seroquel 100 mg t.i.d., Roxanol 20 mg per mL half to 1 mL every 2 hours p.r.n. pain. FOLLOW UP: Arrangements will be made for hospice to care for patient. We will see the patient in [place]ie ch[place] up in a week. CODE STATUS: DNR.
[2016-10-30 09:34] VITALS: TEMP 0
[2016-10-30 11:07] VITALS: BP 148/63
== END 2016-10-30 11:40 | disposition hospice, inpatient (51) | DRG 690 ==
LOC: MADERS 07:16 → MADMS 13:19
PROVIDERS: ADMIT Family Medicine; ATTEND Family Medicine
DX: N39.0 Urinary tract infection, site not specified (principal); F01.51 Vascular dementia, unspecified severity, with behavioral disturbance; J44.9 Chronic obstructive pulmonary disease, unspecified; C34.91 Malignant neoplasm of unspecified part of right bronchus or lung; I69.320 Aphasia following cerebral infarction; I10 Essential (primary) hypertension; D63.8 Anemia in other chronic diseases classified elsewhere; Z68.1 Body mass index [BMI] 19.9 or less, adult; H54.42 Blindness, left eye, normal vision right eye; Z74.01 Bed confinement status; I73.9 Peripheral vascular disease, unspecified; Z95.828 Presence of other vascular implants and grafts; K21.9 Gastro-esophageal reflux disease without esophagitis; E03.9 Hypothyroidism, unspecified; Z79.82 Long term (current) use of aspirin; R15.9 Full incontinence of feces; Z96.0 Presence of urogenital implants; Z66 Do not resuscitate; Z51.5 Encounter for palliative care; H40.9 Unspecified glaucoma; F41.9 Anxiety disorder, unspecified
CPT/HCPCS: 36415; 36416; 51702; 70450; 71010; 71260; 80048; 80053; 81001; 82553; 83036; 83735; 84443; 84484; 85025; 93005; 96361; 96365; 96375; J1956; J2060; J3010; J7042; J7050